=== PATIENT | male | born 1985 | race Caucasian/White ===

== ENCOUNTER 2025-02-25 12:21 | Emergency (ER) | payer OTHER, SELFPAY ==
--- OUTSIDE RECORDS SUMMARY | 2025-02-25 12:24 | XMS REPORT | Continuity of Care Document ---
Author Name Unknown Address [address] [facility] [place] [address] [facility] [address] [facility] [place] [address] Care Team Providers Care Cloth Burler Name Role Phone Unavailable Unavailable Unavailable Encounters Start Date/Time End Date/Time Encounter Type Admission Type Attending Clinicians Care Facility Care Department Encounter ID Source 2025-01-28 13:28:54 2025-01-28 13:28:54 Outpatient S[facility] SFA [id number] Aman Bell 2025-01-21 15:51:19 2025-01-21 15:51:19 Outpatient SFA SFA [id number] Aman Bell 2024-10-03 17:38:29 2024-10-03 17:38:29 Outpatient SFA SFA [id number] Aman Bell 2024-09-26 17:42:56 2024-09-26 17:42:56 Outpatient SFA SFA [id number] Aman Bell 2024-08-27 15:42:27 2024-08-27 15:42:27 Outpatient SFA SFA [id number] Aman Bell 2023-06-09 13:38:15 2023-06-09 13:38:15 Outpatient SFA SFA [id number] Aman Bell Results Test Description Test Time Test Comments Results Result Co mments Source LIPID [id number] 05:32:18* Test Item Value Reference Range Interpretation Comme nts CHOLESTEROL (test code = 2210) 247 MG/DL <200 H TRIGLYCERIDES (test code = 2232) 244 MG/DL <150 H HDL CHOLESTEROL (test code = 2220) 62 MG/DL >39 CALC LDL CHOL (test code = 2237) 146 MG/DL <100 H NOTE: CALCULATED LDL IS BASED ON ELAINE-GRIFFIN METHOD WHICHINCLUDES ADJUSTABLE TRIGLYCERIDE:VLDL CHOLESTEROL RATIO.THIS FACTOR VARIES BY MEASURED TRIGLYCERIDE AND NON-HDLCHOLESTEROL CONCENTRATIONS WITH INCREASED CALCULATED LDL SEENIN HIGHER TRIGLYCERIDE OR LOWER NON-HDL SPECIMENS. FOR MOREINFORMATION, SEE CLIENT ANNOUNCEMENT AT [email or web address] RISK RATIO LDL/HDL (test code = 2237) 2.35 RATIO <3.55 COMPREHENSIVE METABOLIC [id number] 05:32:18* Test Item Value Reference Range Interpretation Comme nts GLUCOSE (test code = 2216) 132 MG/DL 70-99 H BUN (test code = 2207) 11 MG/DL 6-20 CREATININE (test code = 2213) 0.92 MG/DL 0.80-1.40 eGFR (2020 CKD-EPI) (test code = 89059) 109 ML/MIN/1.73 >60 CALC BUN/CREAT (test code = 2234) 12 RATIO 6-28 SODIUM (test code = 2230) 141 MEQ/L 133-146 POTASSIUM (test code = 2227) 4.3 MEQ/L 3.5-5.4 CHLORIDE (test code = 2214) 102 MEQ/L 95-107 CARBON DIOXIDE (test code = 2205) 25 MEQ/L 19-31 CALCIUM (test code = 2208) 9.4 MG/DL 8.5-10.5 PROTEIN, TOTAL (test code = 2228) 8.1 G/DL 6.1-8.3 ALBUMIN (test code = 2200) 5.0 G/DL 3.5-5.2 CALC GLOBULIN (test code = 0) 3.1 G/DL 1.9-3.7 CALC A/G RATIO (test code = 2233) 1.6 RATIO 1.0-2.6 BILIRUBIN, TOTAL (test code = 2206) 0.2 MG/DL <=1.2 ALKALINE PHOSPHATASE (test code = 2203) 95 U/L 40-117 AST (test code = 2217) 64 U/L 9-50 H ALT (test code = 2218) 66 U/L 5-50 H TSH, THIRD [id number] 05:31:28* Test Item Value Reference Range Interpretation Comme nts TSH, THIRD GENERATION (test code = 2821) 2.390 UIU/ML 0.400-4.100 UNLESS OTHERWISE INDICATED, ALL TESTING PERFORMED AT [facility] [address] [place] [id number] RETAIL OFFICE MANAGER: ROSAMARIA BRAND M.D. [place] NUMBER [id number] [facility] [place] [id number] HEMOGLOBIN [id number] 02:27:52* Test Item Value Reference Range Interpretation Comme nts HEMOGLOBIN A1c (test code = 05343) 5.5 % 4.2-5.6 CBC W/AUTO DIFF WITH [id number] 01:39:25* Test Item Value Reference Range Interpretation Comme nts WBC (test code = 1001) 5.2 K/UL 3.5-11.0 RBC (test code = 1002) 4.78 M/UL 4.50-6.10 HEMOGLOBIN (test code = 1003) 16.1 G/DL 13.5-17.0 HEMATOCRIT (test code = 1004) 47.5 % 40.0-51.0 MCV (test code = 1005) 99.4 fL 80.0-99.0 H MCH (test code = 1006) 33.7 PG 25.0-33.0 H MCHC (test code = 1007) 33.9 G/DL 31.0-36.0 RDW (test code = 1038) 12.6 % 11.5-15.0 NEUTROPHILS (test code = 1008) 69.5 % LYMPHOCYTES (test code = 1010) 24.6 % MONOCYTES (test code = 1011) 3.9 % EOSINOPHILS (test code = 1012) 1.0 % BASOPHILS (test code = 1013) 1.0 % IMMATURE GRANULOCYTES (test code = 1036) 0.0 % NUCLEATED RBCS (test code = 1065) 0.0 /100 WBC'S See_Comment [Automated [employer]sequence[employer] ge] The system which generated this result transmitted reference range: 0.0. The reference range was not used to interpret this result as normal/abnormal. PLATELET COUNT (test code = 1015) 186 K/UL 130-400 ABSOLUTE NEUTROPHILS (test code = 1066) 3.60 K/UL 1.50-7.50 ABSOLUTE LYMPHOCYTES (test code = 1067) 1.27 K/UL 1.00-4.00 ABSOLUTE MONOCYTES (test code = 1068) 0.20 K/UL 0.20-1.00 ABSOLUTE EOSINOPHILS (test code = 1040) 0.05 K/UL 0.00-0.50 ABSOLUTE BASOPHILS (test code = 1069) 0.05 K/UL 0.00-0.20 ABS IMMATURE GRANULOCYTES (test code = 1020) 0.00 K/UL 0.00-0.10 ABS NUCLEATED RBCS (test code = 57171) 0.00 K/UL 0.00-0.11
[2025-02-25] MEDS ORDERED: KETOROLAC 30 MG/ML INJ ONE (12:45)
--- NOTE | 2025-02-25 13:47 | RAD REPORT ---
EXAM: CT brain without contrast HISTORY: dizziness, neck pain COMPARISON: 01/14/2024 TECHNIQUE: Multiple contiguous axial images were obtained and a CT of the brain without contrast. Sag ittal and coronal reformats were performed. FINDINGS: No evidence of hydrocephalus, intracranial hemorrhage, or extra-axial fluid collection. The brain is normal in morphology. The calvarium is intact. The visualized paranasal sinuses and mastoid air cells are essentially clear . IMPRESSION: No evidence of acute intracranial abnormality. EXAM: CT of the cervical spine without contrast HISTORY: dizziness, neck pain COMPARISON: None TECHNIQUE: Multiple contiguous axial images were obtained in a CT of the cervical spine without contr ast. Sagittal and coronal reformats were performed. FINDINGS: The vertebral bodies demonstrate normal height and alignment. No evidence of acute fracture or subluxation.. No degenerative changes are present. No prevertebral soft tissue swelling is seen. The posterior facets are well aligned. Normal alignment of the skull base with the cervical spine is seen. The lung apices are unremarkable. IMPRESSION: No evidence of acute osseous abnormality of the cervical spine.
--- NOTE | 2025-02-25 13:51 | ER ---
Nurse's Notes [facility] Name: Cuauhtemoc Jacobo Age: 39 yrs Sex: Male : 1985 Arrival Date: 02/25/2025 Time: 12:21 Bed 20 Private MD: Diagnosis: Cervicalgia Presentation: 02/25 12:27 Chief complaint: HEADACHE, PAIN IN UPPER BACK AND NECK, INTERMITTENT NUMBNESS OF BILAT hb HANDS AND FINGERS X 1 MONTH. Coronavirus screen: At this time, the client does not indicate any symptoms associated with coronavirus-19. Ebola Screen: No symptoms or risks identified at this time. Initial Sepsis Screen: Does the patient meet any 2 criteria? No. Patient's initial sepsis screen is negative. Does the patient have a suspected source of infection? No. Patient's initial sepsis screen is negative. Risk Assessment: Do you want to hurt yourself or someone else? Patient reports no desire to harm self or others. Onset of symptoms was January 2025. 12:27 Method Of Arrival: Ambulatory hb 12:27 Acuity: ARMANI 3 hb Triage Assessment: 12:30 Headache History: The patient has had previous headaches and this one is similar to bp previous episodes. General: Appears in no apparent distress. Behavior is cooperative, appropriate for age, anxious. Pain: Complains of pain in neck Pain currently is 5 out of 10 on a pain scale. Pain began 1 day ago. Also complains of no other associated symptoms. EENT: No deficits noted. Neuro: Level of Consciousness is awake, alert, obeys commands, Oriented to Appropriate for age. Cardiovascular: Rhythm is sinus rhythm. Respiratory: No deficits noted. GI: No signs and/or symptoms were reported involving the gastrointestinal system. : No signs and/or symptoms were reported regarding the genitourinary system. Derm: No deficits noted. Musculoskeletal: No deficits noted. Historical: - Allergies: 12:29 No Known Allergies; hb - Home Meds: 12:29 lisinopril 40 mg oral tablet [Active]; hb - PMHx: 12:29 HTN; hb - Immunization history:: Adult Immunizations up to date. - Infectious Disease History:: Denies. - Social history:: Smoking status: Patient reports the use of cigarette tobacco products, smokes one pack cigarettes per day. Patient uses alcohol, on a daily basis. admits to "couple of beers" a day. Screenin:03 [facility] ED Fall Risk Assessment (Adult) History of falling in the last 3 months, bp including since admission No falls in past 3 months (0 pts) Confusion or Disorientation No (0 pts) Intoxicated or Sedated No (0 pts) Impaired Gait No (0 pts) Mobility Assist Device Used No (0 pt) Altered Elimination No (0 pt) Score/Fall Risk Level 0 - 2 = Low Risk Oriented to surroundings. Abuse screen: Denies threats or abuse. Denies injuries from another. Nutritional screening: No deficits noted. Tuberculosis screening: No symptoms or risk factors identified. Assessment: 12:30 General: SEE TRIAGE NOTE. bp Vital Signs: 12:27 BP 122 / 79; Pulse 98; Resp 16; Temp 97.7; Pulse Ox 100% on R/A; Weight 95.71 kg; hb Height 6 ft. 0 in. ; Pain 9/10; 14:04 BP 131 / 75; Pulse 89; Resp 16; Pulse Ox 99% ; bp 12:27 Body Mass Index 28.62 (95.71 kg, 182.88 cm) hb 12:27 Pain Scale: Adult hb [place] Coma Score: 13:50 Eye Response: spontaneous(4). Motor Response: obeys commands(6). Verbal Response: sb4 oriented(5). Total: 15. ED Course: 12:24 Patient arrived in ED. al6 12:28 Nina Reyes PA-C is PHCP. sb4 12:28 Macario Quijano DO is Attending Physician. sb4 12:28 Triage completed. hb 12:30 Arm band placed on. hb 12:32 Patient placed in an exam room, on a stretcher. ll1 12:38 Floyd Macias, RN is Primary Nurse. bp 12:53 CT Head C Spine In Process Unspecified. EDMS 13:50 Dilan Ambrocio MD is Referral Physician. sb4 14:03 Patient has correct armband on for positive identification. bp 14:03 No provider procedures requiring assistance completed. Patient did not have IV access bp during this emergency room visit. Administered Medications: 13:03 Drug: Ketorolac IM 30 mg IM once Route: IM; Site: right gluteus; bp 14:05 Follow up: Response: No adverse reaction bp 13:03 Drug: Dexamethasone IM 10 mg IM once Route: IM; Site: right gluteus; bp 14:05 Follow up: Response: No adverse reaction bp 13:03 Drug: Methocarbamol PO 750 mg PO once Route: PO; bp 14:04 Follow up: Response: No adverse reaction bp Medication: 14:03 VIS not applicable for this client. bp Outcome: 13:51 Discharge ordered by MD. saldana 14:03 Discharged to home ambulatory, bp 14:03 Condition: stable 14:03 Discharge instructions given to patient, Instructed on discharge instructions, follow up and referral plans. medication usage, Demonstrated understanding of instructions, follow-up care, medications, Prescriptions given X 3, 14:05 Patient left the ED. bp Signatures: Dispatcher [employer] EDMS Laurence Ngo RN RN Floyd Asher RN RN Dulce Fink RN RN ll1 Nina Reyes, PA-C PA-C [email or web address] Gloria [email or web address] Corrections: (The following items were deleted from the chart) 12:31 12:27 Chief complaint: HEADACHE AND PAIN IN UPPER BACK AND NECK X 1 MONTH. hb hb 12:31 12:27 Ebola Screen: No symptoms or risks identified at this time. hb hb
--- NOTE | 2025-02-25 13:52 | EDPHYS ---
Physician Documentation [facility] Name: Cuauhtemoc Jacobo Age: 39 yrs Sex: Male : 1985 Arrival Date: 02/25/2025 Time: 12:21 Bed 20 Private MD: ED Physician Macario Quijano HPI: 02/25 12:51 This 39 yrs old Male presents to ER via Ambulatory with complaints of Headache, Neck sb4 Problem, Dizziness. 12:51 Patient reports pain in his lower neck/upper back for over a month now. He has been sb4 seen for this before, had x-rays that were negative, was told he would need an MRI and given muscle relaxers. He states that he cannot afford an MRI and the muscle relaxers make him too drowsy to do his work. He has not been on any anti-inflammatories. Historical: - Allergies: 12:29 No Known Allergies; hb - Home Meds: 12:29 lisinopril 40 mg oral tablet [Active]; hb - PMHx: 12:29 HTN; hb - Immunization history:: Adult Immunizations up to date. - Infectious Disease History:: Denies. - Social history:: Smoking status: Patient reports the use of cigarette tobacco products, smokes one pack cigarettes per day. Patient uses alcohol, on a daily basis. admits to "couple of beers" a day. ROS: 12:51 Constitutional: Negative for fever, chills, and weight loss, sb4 12:51 Neck: Positive for pain with movement, pain at rest, of the right posterior aspect of neck and left posterior aspect of neck, 12:51 All other systems are negative, Exam: 12:53 Constitutional: This is a well developed, well nourished patient who is awake, alert, sb4 and in no acute distress. Head/Face: Normocephalic, atraumatic. Eyes: Extra-ocular motions intact. Periorbital areas with no swelling, redness, or edema. ENT: Mucous membranes moist. Respiratory: No increased work of breathing, no retractions or nasal flaring. Skin: Warm, dry with normal turgor. Normal color with no rashes, no lesions, and no evidence of cellulitis. MS/ Extremity: Pulses equal, no cyanosis. Neurovascular intact. Full, normal range of motion. Neuro: Awake and alert, GCS 15, oriented to person, place, time, and situation. Motor strength 5/5 in all extremities. Sensory grossly intact. 12:53 Neck: External neck: is normal, no acute changes, C-spine: no acute changes, ROM/movement: pain, with any movement, Vital Signs: 12:27 BP 122 / 79; Pulse 98; Resp 16; Temp 97.7; Pulse Ox 100% on R/A; Weight 95.71 kg; hb Height 6 ft. 0 in. ; Pain 9/10; 14:04 BP 131 / 75; Pulse 89; Resp 16; Pulse Ox 99% ; bp 12:27 Body Mass Index 28.62 (95.71 kg, 182.88 cm) hb 12:27 Pain Scale: Adult hb [place] Coma Score: 13:50 Eye Response: spontaneous(4). Motor Response: obeys commands(6). Verbal Response: sb4 oriented(5). Total: 15. MDM: 12:28 Medical Screening Exam initiated sb4 13:50 Data reviewed: vital signs, nurses notes, radiologic studies, and as a result, I will sb4 discharge patient. Care significantly affected by the following chronic conditions: Hypertension. Counseling: I had a detailed discussion with the patient and/or guardian regarding the historical points, exam findings, and any diagnostic results supporting the discharge/admit diagnosis, radiology results, the need for outpatient follow up, for definitive care, to return to the emergency department if symptoms worsen or persist or if there are any questions or concerns that arise at home. Response to treatment: the patient's symptoms have markedly improved after treatment, and as a result, I will discharge patient. 02/25 12:38 Order name: CT Head C Spine; Complete Time: 13:48 sb4 Administered Medications: 13:03 Drug: Ketorolac IM 30 mg IM once Route: IM; Site: right gluteus; bp 14:05 Follow up: Response: No adverse reaction bp 13:03 Drug: Dexamethasone IM 10 mg IM once Route: IM; Site: right gluteus; bp 14:05 Follow up: Response: No adverse reaction bp 13:03 Drug: Methocarbamol PO 750 mg PO once Route: PO; bp 14:04 Follow up: Response: No adverse reaction bp Disposition: 16:12 I was immediately available on-site in the Emergency Department for consultation in the [facility] care of the patient. Disposition Summary: 02/25/25 13:51 Discharge Ordered Notes: Location: Home sb4 Problem: an ongoing problem sb4 Symptoms: have improved sb4 Condition: Stable sb4 Diagnosis - Cervicalgia sb4 Followup: sb4 - With: Dilan Ambrocio MD - When: As needed - Reason: Further diagnostic work-up, Recheck today's complaints, Re-evaluation by your physician Discharge Instructions: - Discharge Summary Sheet sb4 - Musculoskeletal Pain sb4 - Neck Exercises sb4 Forms: - Patient Portal Instructions sb4 - Leadership Thank You Letter sb4 Prescriptions: - Diclofenac Sodium 75 mg Oral Tablet Sustained Release - take 1 tablet ORAL route 2 times per day; 30 tablet; Refills: 0, Product sb4 Selection Permitted - Prednisone 20 mg Oral Tablet - take 2 tablets ORAL route once daily for 5 days; 10 tablet; Refills: 0, Product sb4 Selection Permitted - methocarbamol 750 mg Oral tablet - take 1 tablet ORAL route every 4 hours; 20 tablet; Refills: 0, Product sb4 Selection Permitted Signatures: Dispatcher [employer] Laurence Infante, RN RN Floyd Asher, RN RN Macario Odell DO DO ms3 Nina Reyes PA-C PAJarocho sb4
[2025-02-25 17:49] VITALS: TEMP 97.7
[2025-02-25 17:50] VITALS: BP 131/75; O2SAT 99
== END 2025-02-25 14:05 | disposition home or self-care (01) ==
LOC: ER 12:21 → EDBD 12:21 → ER 14:05
DX: M54.2 Cervicalgia (principal); I10 Essential (primary) hypertension; F17.210 Nicotine dependence, cigarettes, uncomplicated
CPT/HCPCS: 70450; 72125; 96372; 99284; J1100